=== PATIENT | male | born 2000 | race Caucasian/White ===

== ENCOUNTER → 2021-06-22 | Outpatient (CLI) | payer BC | END | disposition home or self-care (01) | LOC: CVU 07:25 | PROVIDERS: ATTEND Internal Medicine Cardiovascular Disease | DX: I08.8 Other rheumatic multiple valve diseases (principal); I10 Essential (primary) hypertension; N28.0 Ischemia and infarction of kidney | CPT/HCPCS: 93306; 93356; 93975 ==